=== PATIENT | male | born 1980 | race Two or more races ===

== ENCOUNTER 2016-12-16 06:38 | Emergency (ER) | payer OTHER ==
[~2016-12-16] VITALS: Ht 162.6 cm; Wt 60.0 kg
[2016-12-16 06:39] VITALS: BP 131/78; PULSE 68; RESP 16; TEMP 98.4; O2SAT 98
--- NOTE | 2016-12-16 06:58 | PD ---
HPI Chief Complaint: Injury Time Seen by Provider: 06:52 Travel History International Travel<30 days: No Contact w/Intl Traveler<30days: No Traveled to known affect area: No History of Present Illness HPI 36-year-old male patient presents to the ER today because he states that he had been dancing with his mom yesterday, lost balance and fell, and his mom fell on his right knee. He is currently having pain in the right knee with any movement or weightbearing. Pain is rated at a 1 out of 10 at rest and worse with movements. Modifying Factors: None Associated Signs & Symptoms: Right knee injury Risk Factors: None PFSH Social History Tobacco Use: No Allergies-Medications (Allergen,Severity, Reaction): Coded Allergies: No Known Allergies (Unverified , 12/16/16) Review of Systems Except as stated in HPI: all other systems reviewed are Neg Physical Exam Narrative GENERAL: This is a well-nourished, well-developed male patient, in no apparent distress. EXTREMITIES: No clubbing, cyanosis, or edema. No joint tenderness, effusion, or edema noted. There is tenderness on palpation of the right medial knee at the joint line. Tenderness with range of motion of the knee. No obvious deformities. Data Data Last Documented VS Vital Signs Date Time Temp Pulse Resp B/P Pulse Ox O2 Delivery O2 Flow Rate FiO2 12/16/16 06:39 98.4 68 16 131/78 98 Room Air Orders Knee, Complete (4vws) (12/16/16 06:52) [facility] Medical Decision Making Medical Screen Exam Complete: Yes Emergency Medical Condition: Yes Medical Record Reviewed: Yes Differential Diagnosis Right knee injuryfractures versus meniscus tear versus ligamentous injury Narrative Course X-ray was ordered for further evaluation. Physician Communication Physician Communication Case is signed out to Dr. Gonzalez 7 AM pending x-ray. Diagnosis Primary Impression: Knee injury Condition: Stable Arie Liriano MD December 16, 2016 06:58
--- NOTE | 2016-12-16 07:10 | PD ---
Physical Exam Narrative Patient was seen by ED physician and signed out to me. Data Data Last Documented VS Vital Signs Date Time Temp Pulse Resp B/P Pulse Ox O2 Delivery O2 Flow Rate FiO2 12/16/16 06:39 98.4 68 16 131/78 98 Room Air Orders Knee, Complete (4vws) (12/16/16 06:52) Mri Joint Knee W/O Contrast (12/16/16 ) Splint Or Brace Apply/Monitor (12/16/16 07:10) Crutches (12/16/16 07:10) MDM Supervised Visit with MOHINDER: No Narrative Course Patient was seen by ED physician and signed out to me. Diagnosis Primary Impression: Knee injury Qualified Code: S89.91XA - Knee injury, right, initial encounter Additional Impression: Injury of ligament of right knee Qualified Code: S89.91XA - Injury of ligament of right knee, initial encounter Patient Instructions: General Instructions Med/Other Pt SpecificInfo: Prescription(s) given Scripts Tramadol (Ultram)50 Mg Tab50 Mg PO Q6H PRN (PAIN) #60 TAB Prov:Messi Gonzalez MD 12/16/16 Meloxicam (Mobic)15 Mg Tab15 Mg PO DAILY #30 TAB Prov:Messi Gonzalez MD 12/16/16 Disposition: 01 DISCHARGE HOME Condition: Stable Messi Gonzalez MD December 16, 2016 07:10
--- NOTE | 2016-12-16 07:16 | RADRPT ---
EXAM DATE/TIME: 12/16/2016 07:00 [facility] COMPARISON: No previous studies available for comparison. INDICATIONS : Right knee pain, fell MEDICAL HISTORY : None. SURGICAL HISTORY : None. ENCOUNTER: Initial ACUITY: 2 days PAIN SCORE: 8/10 LOCATION: Right Knee FINDINGS: Four view examination of the right knee demonstrates no evidence of fracture or dislocation. Bony mi neralization is normal. The articular surfaces are intact. The suprapatellar soft tissues have a no rmal configuration. Small knee joint effusion. CONCLUSION: Small effusion. No obvious fractures. [place] MD on December 16, 2016 at 7:13 Board Certified Radiologist. This report was verified electronically.
[2016-12-16] MEDS ORDERED: ULTR50TA5 PO (08:35)
[2016-12-16] MEDS ORDERED: MOBI15TA PO (08:35)
--- NOTE | 2016-12-16 14:58 | RADRPT ---
EXAM DATE/TIME: 12/16/2016 07:52 [facility] COMPARISON: No previous studies available for comparison. INDICATIONS : Internal derangement. MEDICAL HISTORY : None. SURGICAL HISTORY : None. ENCOUNTER: Initial ACUITY: 1 day PAIN SCORE: 6/10 LOCATION: Right knee TECHNIQUE: Multiplanar, multisequence MRI examination was performed without contrast. FINDINGS: There is a mid to distal rupture of the anterior cruciate ligament. Nondisplaced fractures are seen a long the posterior margins of the medial and lateral tibial plateaus. There is a slightly depressed f racture in the sulcus terminalis region of the lateral femoral condyle. The posterior cruciate ligament is intact. Peripheral steeply oblique tear is seen in the posterior horn/body junction region of the medial meni scus that extends through the superior articular surface in the periphery, for example series 6 image 22. No displaced fragments seen. The lateral meniscus is intact. The medial collateral ligament is intact. There is a proximal tib-fib capsular ligament sprain, especially the tibial fibers, for example serie s 3 image 21. The rest of the posterolateral corner structures are intact, including popliteus, the f ibular collateral ligament and distal biceps femoris. Moderate joint effusion. CONCLUSION: 1. Acute rupture of the anterior cruciate ligament. 2. Nondisplaced pivot shift type bony injuries as above. 3. Focal oblique peripheral tear of the posterior horn/body junction region of the medial meniscus. 4. Posterolateral corner injury involving the proximal tib-fib capsule. The fibular collateral ligame nt, popliteus tendon and distal biceps femoris tendon are intact. 5. Moderate joint effusion. Cruz Santa MD on December 16, 2016 at 14:53 Board Certified Radiologist. This report was verified electronically.
== END 2016-12-16 09:42 | disposition home or self-care (01) ==
LOC: NEPE 06:38
DX: S76.101A Unspecified injury of right quadriceps muscle, fascia and tendon, initial encounter (principal); W18.30XA Fall on same level, unspecified, initial encounter; Y93.41 Activity, dancing; Y92.9 Unspecified place or not applicable; Y99.9 Unspecified external cause status
CPT/HCPCS: 73564; 73721; 99284; E0113; L1830